=== PATIENT | female | born 1985 | race Caucasian/White ===

== ENCOUNTER → 2022-04-01 | Outpatient (CLI) | payer OTHER | LOC: KOH-I 08:15 | DX: M54.50 Low back pain, unspecified (principal); R00.2 Palpitations; E55.9 Vitamin D deficiency, unspecified; R89.9 Unspecified abnormal finding in specimens from other organs, systems and tissues; R93.89 Abnormal findings on diagnostic imaging of other specified body structures; Z74.09 Other reduced mobility | CPT/HCPCS: 72146 ==

== ENCOUNTER → 2022-04-05 | Outpatient (CLI) | payer OTHER | LOC: KOH-I 08:15 | DX: M54.16 Radiculopathy, lumbar region (principal); R00.2 Palpitations; R89.9 Unspecified abnormal finding in specimens from other organs, systems and tissues; E55.9 Vitamin D deficiency, unspecified; R93.89 Abnormal findings on diagnostic imaging of other specified body structures; M51.37 Other intervertebral disc degeneration, lumbosacral region | CPT/HCPCS: 72148 ==

== ENCOUNTER → 2022-07-01 | Outpatient (CLI) | payer OTHER | LOC: US 09:30 | DX: R10.2 Pelvic and perineal pain (principal); N92.6 Irregular menstruation, unspecified | CPT/HCPCS: 76830 ==